=== PATIENT | male | born 1985 ===

== ENCOUNTER 2020-04-14 08:38 | Outpatient (CLI) | payer MEDICAID, SELFPAY ==
[2020-04-16 02:41] LABS: SARS-CoV-2 RNA Undetected (Undetected); SARS-CoV-2 Specimen Source Nasopharynx
== END 2020-04-14 08:58 ==
PROVIDERS: PCP Family Medicine; Visit Provider Family Medicine
DX: Z11.59 Encounter for screening for other viral diseases (principal)
CPT/HCPCS: U0003

== ENCOUNTER 2020-08-14 13:01 | Outpatient (CLI) | payer MEDICAID, SELFPAY ==
[2020-08-15 15:36] LABS: COVID-19 RT-PCR Result NEGATIVE (Negative)
== END 2020-08-14 13:21 ==
PROVIDERS: PCP Nurse Practitioner; Visit Provider Nurse Practitioner
DX: Z20.822 Contact with and (suspected) exposure to COVID-19 (principal)
CPT/HCPCS: U0003

== ENCOUNTER 2020-09-23 03:09 | Outpatient (CLI) | payer MEDICAID, SELFPAY ==
[2020-09-23 15:14] LABS: Hemoglobin A1C 5.7 % (<5.7)
[2020-09-23 16:58] LABS: Calculated LDL 102 mg/dL (<100); Cholesterol 171 mg/dL (<200); HDL Cholesterol 43 mg/dL (40-60); Triglyceride 133 mg/dL (<150)
== END 2020-09-23 03:10 | disposition home or self-care (01) ==
LOC: LBO 03:09
PROVIDERS: PCP Nurse Practitioner; Visit Provider Nurse Practitioner
DX: Z13.1 Encounter for screening for diabetes mellitus (principal); Z13.220 Encounter for screening for lipoid disorders
CPT/HCPCS: 36415; 80061; 83036

== ENCOUNTER 2023-08-18 11:43 | Outpatient (REF) | payer MEDICAID, SELFPAY ==
[2023-08-18 14:25] LABS: Anion Gap 9.7 mmol/L (3-11); BUN 14 mg/dL (7-18); CO2 25.3 mmol/L (21.0-32.0); CREATININE 1.3 mg/dL (0.70-1.30); Calcium 9.7 mg/dL (8.5-10.1); Chloride 105 mmol/L (98-107); Estimated GFR 71.67 (mL/min/1.73m2); Glucose 103 mg/dL (74-106); Potassium 4.2 mmol/L (3.5-5.1); Sodium 140 mmol/L (136-145)
[2023-08-18 14:32] LABS: Hemoglobin A1C 5.4 % (<5.7)
== END 2023-08-18 11:44 | disposition home or self-care (01) ==
LOC: LBN 11:43
PROVIDERS: PCP Nurse Practitioner Family; Visit Provider Nurse Practitioner Family
DX: I10 Essential (primary) hypertension (principal); R73.03 Prediabetes
CPT/HCPCS: 80048; 83036